=== PATIENT | female | born 1965 ===

== ENCOUNTER 2022-01-09 06:00 | Day surgery (SDC) | payer OTHER ==
[~2022-01-09] VITALS: Ht 152.4 cm; Wt 50.3 kg
== END 2022-01-09 13:35 | disposition home or self-care (01) ==
LOC: CIR.AMB 06:00 → ADM 09:15 → CIR.AMB 09:15
PROVIDERS: ATTEND Orthopaedic Surgery Hand Surgery
DX: M65.341 Trigger finger, right ring finger (principal); Z91.040 Latex allergy status; Z87.891 Personal history of nicotine dependence; G43.909 Migraine, unspecified, not intractable, without status migrainosus; Z20.822 Contact with and (suspected) exposure to COVID-19